=== PATIENT | male | born 1985 ===

== ENCOUNTER → 2022-02-22 | Emergency (ER) | payer OTHER ==
[~2022-02-22] VITALS: Ht 172.7 cm; Wt 77.1 kg
[~2022-02-22] MED LIST: INTESTINEX680 M1 PO; LEVSIN/SL0.125 MG SL
== END | disposition home or self-care (01) ==
LOC: ER 22:45
DX: R19.7 Diarrhea, unspecified (principal); Z20.822 Contact with and (suspected) exposure to COVID-19

== ENCOUNTER 2022-10-01 20:45 | Emergency (ER) | payer OTHER ==
[~2022-10-01] VITALS: Ht 170.2 cm; Wt 90.7 kg
== END 2022-10-01 22:31 | disposition home or self-care (01) ==
LOC: ER 20:45
DX: M79.671 Pain in right foot (principal); M79.89 Other specified soft tissue disorders

== ENCOUNTER 2023-01-25 11:55 | Outpatient (CLI) | payer OTHER | END 2023-01-25 12:04 | disposition home or self-care (01) | LOC: SONOGRAMA 11:55 | DX: R60.0 Localized edema (principal) ==